=== PATIENT | female | born 1955 | race Caucasian/White ===

== ENCOUNTER 2018-03-17 16:33 | Inpatient (IN) | payer OTHER ==
[~2018-03-17] VITALS: Ht 165.1 cm; Wt 72.5 kg
[2018-03-17] MEDS ORDERED: SODIUM CHLORIDE FLUSH 10ML SYR IVF ONE (17:00)
[2018-03-17] MEDS ORDERED: SODIUM CHLORIDE 0.9% 1,000ML IVBOLUS ONE (17:00)
[2018-03-17] MEDS ORDERED: ASPIRIN 81 MG TABLET CHEW PO ONE (17:00)
[2018-03-17] MEDS ORDERED: ONDANSETRON ODT 4 MG PO ONE (17:00)
[2018-03-17 17:13] LABS: BASOPHILS # (AUTO) 0.05 x10^3/uL (0-0.1); BASOPHILS % (AUTO) 1 % (0-1); EOSINOPHILS # (AUTO) 0.09 x10^3/uL (0-0.4); EOSINOPHILS % (AUTO) 1 % (1-7); LYMPHOCYTES # (AUTO) 1.27 x10^3/uL (1-3.4); LYMPHOCYTES % (AUTO) 19 % (22-44); MD NO; MEAN CORPUSCULAR HEMOGLOBIN 27.8 pg (27.0-34.8); MEAN CORPUSCULAR HGB CONC 33.7 g/dL (32.4-35.8); MEAN CORPUSCULAR VOLUME 82.4 fL (80-100); MEAN PLATELET VOLUME 7.7 fL (7.4-10.4); MONOCYTES # (AUTO) 0.35 x10^3/uL (0.2-0.8); MONOCYTES % (AUTO) 5 % (2-9); NEUTROPHILS # (AUTO) 4.96 x10^3/uL (1.8-6.8); NEUTROPHILS % (AUTO) 74 % (42-75); PLATELET COUNT 358 x10^3/uL (130-400); RED BLOOD COUNT 4.97 x10^6/uL (3.82-5.3); RED CELL DISTRIBUTION WIDTH 13.5 % (9.6-15.2)
[2018-03-17 17:25] LABS: D-DIMER 0.48 ug/mlFEU (0.00-0.52); INTERNATIONAL NORMALIZED RATIO 1.04 (0.93-1.1); PROTHROMBIN TIME 10.7 Seconds (9.6-11.5)
[2018-03-17 17:26] LABS: ALANINE AMINOTRANSFERASE 35 U/L (12-78); ALBUMIN 4.1 g/dL (3.4-5.0); ANION GAP 10 mmol/L (5-15); CALCIUM 8.8 mg/dL (8.5-10.1); CHLORIDE 104 mmol/L (98-107); CREATININE 1.11 mg/dL (0.55-1.02)
[2018-03-17 17:30] LABS: ALKALINE PHOSPHATASE 112 U/L (45-117); BILIRUBIN,TOTAL 0.7 mg/dL (0.2-1.0); TOTAL PROTEIN 7.5 g/dL (6.4-8.2)
[2018-03-17 17:39] LABS: MICROSCOPIC NOT IND
[2018-03-17] MEDS ORDERED: ASPIRIN 81 MG TABLET CHEW ONE (17:48)
[2018-03-17] MEDS ORDERED: ONDANSETRON ODT 4 MG ONE (17:48)
[2018-03-17 17:49] LABS: CULTURE INDICATED? NO
[2018-03-17] MEDS ORDERED: POTASSIUM CHLORIDE 20 MEQ TAB.ER.PRT ONE (17:49)
[2018-03-17 17:55] LABS: FREE T4 (FREE THYROXINE) 1.23 ng/dL (0.76-1.46); THYROID STIMULATING HORMONE 5.04 mIU/L (0.358-3.740)
[2018-03-17] MEDS ORDERED: POTASSIUM CHLORIDE 20 MEQ TAB.ER.PRT PO ONE (18:00)
[2018-03-17 19:27] LABS: AMPHETAMINE SCREEN, URINE Negative (Negative); BARBITURATE SCREEN, URINE Positive (Negative); BENZODIAZEPINE SCREEN, URINE Negative (Negative); CANNABINOID SCREEN, URINE Negative (Negative); COCAINE SCREEN, URINE Negative (Negative); METHADONE SCREEN, URINE Negative (Negative); OPIATE SCREEN, URINE Negative (Negative)
[2018-03-17] MEDS ORDERED: NS + 20MEQ KCL 1,000 ML IV SCH (20:25)
[2018-03-17] MEDS ORDERED: DOCUSATE 100 MG CAPSULE PO PRN (20:30)
[2018-03-17] MEDS ORDERED: morphine SULFATE 10 MG/ML, 1ML IVPush PRN (20:30)
[2018-03-17] MEDS ORDERED: HYDROcodone/APAP 5/325 TABLET PO PRN (20:30)
[2018-03-17] MEDS ORDERED: ONDANSETRON 2MG/ML, 2ML IVPush PRN (20:30)
[2018-03-17] MEDS ORDERED: POLYETHYLENE GLYCOL 17 GM PACKET PO PRN (20:30)
[2018-03-17 21:30] VITALS: BP 106/70
[2018-03-17] MEDS ORDERED: ALBUTEROL SULFATE 2.5 MG/3 ML NPPB PRN (21:30)
[2018-03-17] MEDS: ENOXAPARIN 40 MG/0.4 ML SQ SCH (22:40)
[2018-03-17 22:50] VITALS: BP 106/70
[2018-03-17] MEDS ORDERED: OMEP20TA62 PO (23:58)
[2018-03-18] MEDS ORDERED: FLUT1DIS3 INH (00:05)
[2018-03-18] MEDS ORDERED: ACYC-114 PO (00:08)
[2018-03-18] MEDS ORDERED: QUET25TA PO (00:11)
[2018-03-18] MEDS ORDERED: MONT10TA6 PO (00:13)
[2018-03-18] MEDS ORDERED: PRIM50TA PO (00:16)
[2018-03-18] MEDS ORDERED: ALBU18HF PO (00:20)
[2018-03-18] MEDS ORDERED: FLUO20CA8 PO (00:24)
[2018-03-18] MEDS ORDERED: BUPR150T13 PO (00:27)
[2018-03-18 01:17] VITALS: BP 114/72
[2018-03-18] MEDS: QUETIAPINE 25MG TABLET PO SCH ×2 (02:05→21:13)
[2018-03-18 05:57] LABS: TROPONIN I 0.019 ng/mL (0.000-0.045)
[2018-03-18 07:07] VITALS: BP 109/67
[2018-03-18] MEDS: SENNA/DOCUSATE TABLET PO SCH (08:19)
[2018-03-18] MEDS ORDERED: ASPI-515 PO (08:21)
[2018-03-18 08:54] LABS: ANION GAP 10 mmol/L (5-15); CHLORIDE 115 mmol/L (98-107); CREATININE 0.96 mg/dL (0.55-1.02)
[2018-03-18] MEDS ORDERED: ALBUTEROL SULFATE 2.5 MG/3 ML NPPB PRN (11:30)
[2018-03-18] MEDS: FLUOXETINE HCL 20 MG CAPSULE PO SCH (12:11)
[2018-03-18] MEDS: ACYCLOVIR 400 MG TABLET PO SCH ×3 (12:11→21:11)
[2018-03-18] MEDS: ASPIRIN 81 MG TABLET EC PO SCH (12:11)
[2018-03-18] MEDS: BUPROPION SR 150 MG TABLET PO SCH ×3 (12:11→21:11)
[2018-03-18 13:11] VITALS: BP 118/71
[2018-03-18 13:12] VITALS: BP 123/69
[2018-03-18 13:13] VITALS: BP 121/72
[2018-03-18] MEDS: ACETAMINOPHEN 325 MG TABLET PO PRN (15:45)
[2018-03-18 18:41] VITALS: BP_SYST 115; BP_SYST 121; BP_SYST 126; BP_DIAS 70; BP_DIAS 72; BP_DIAS 79
[2018-03-18] MEDS ORDERED: MONTELUKAST 10 MG TABLET PO SCH (21:00)
[2018-03-18] MEDS ORDERED: PRIMIDONE 50 MG TABLET PO SCH (21:00)
[2018-03-18] MEDS ORDERED: QUETIAPINE 25MG TABLET PO SCH (21:00)
[2018-03-18] MEDS: ENOXAPARIN 40 MG/0.4 ML SQ SCH (21:13)
[2018-03-19 02:05] VITALS: BP 117/73
[2018-03-19] MEDS ORDERED: OMEPRAZOLE 20 MG CAPSULE.DR PO SCH (07:30)
[2018-03-19] MEDS: FLUOXETINE HCL 20 MG CAPSULE PO SCH (07:42)
[2018-03-19] MEDS: ACYCLOVIR 400 MG TABLET PO SCH (07:42)
[2018-03-19] MEDS: ASPIRIN 81 MG TABLET EC PO SCH (07:42)
[2018-03-19] MEDS: BUPROPION SR 150 MG TABLET PO SCH (07:42)
[2018-03-19] MEDS: SENNA/DOCUSATE TABLET PO SCH (07:43)
[2018-03-19] MEDS: ACETAMINOPHEN 325 MG TABLET PO PRN (07:49)
[2018-03-19 08:07] VITALS: BP 130/69
[2018-03-19 08:08] VITALS: BP 127/80
[2018-03-19 08:09] VITALS: BP 127/79
[2018-03-19] MEDS ORDERED: FLUTICASONE/VILANTEROL 100-25MCG/INH INH SCH (09:00)
[2018-03-19] MEDS ORDERED: IBUPROFEN 200 MG TABLET PO PRN (09:30)
[2018-03-19 09:57] LABS: BASOPHILS # (AUTO) 0.03 x10^3/uL (0-0.1); BASOPHILS % (AUTO) 1 % (0-1); EOSINOPHILS # (AUTO) 0.12 x10^3/uL (0-0.4); EOSINOPHILS % (AUTO) 2 % (1-7); LYMPHOCYTES # (AUTO) 1.39 x10^3/uL (1-3.4); LYMPHOCYTES % (AUTO) 22 % (22-44); MD NO; MEAN CORPUSCULAR HGB CONC 33.3 g/dL (32.4-35.8); MEAN CORPUSCULAR VOLUME 84.3 fL (80-100); MEAN PLATELET VOLUME 7.7 fL (7.4-10.4); MONOCYTES # (AUTO) 0.32 x10^3/uL (0.2-0.8); MONOCYTES % (AUTO) 5 % (2-9); NEUTROPHILS # (AUTO) 4.36 x10^3/uL (1.8-6.8); NEUTROPHILS % (AUTO) 70 % (42-75); PLATELET COUNT 325 x10^3/uL (130-400); RED BLOOD COUNT 4.76 x10^6/uL (3.82-5.3); RED CELL DISTRIBUTION WIDTH 13.9 % (9.6-15.2)
[2018-03-19 10:07] LABS: ALANINE AMINOTRANSFERASE 33 U/L (12-78); ALBUMIN 3.8 g/dL (3.4-5.0); ANION GAP 7 mmol/L (5-15); CALCIUM 8.8 mg/dL (8.5-10.1); CHLORIDE 103 mmol/L (98-107); CREATININE 1.03 mg/dL (0.55-1.02)
[2018-03-19 10:09] LABS: ALKALINE PHOSPHATASE 109 U/L (45-117); BILIRUBIN,TOTAL 0.5 mg/dL (0.2-1.0); TOTAL PROTEIN 7.3 g/dL (6.4-8.2)
[2018-03-19 13:13] VITALS: BP 112/70
== END 2018-03-19 14:58 | disposition home or self-care (01) | DRG 73 ==
LOC: ED 18:21 → EDIP 20:01 → 4EST 21:12
PROVIDERS: ADMIT Family Medicine; ATTEND Family Medicine
DX: G90.9 Disorder of the autonomic nervous system, unspecified (principal); J96.01 Acute respiratory failure with hypoxia; T68.XXXA Hypothermia, initial encounter; E87.2 Acidosis; R07.89 Other chest pain; E86.0 Dehydration; F32.9 Major depressive disorder, single episode, unspecified; E87.6 Hypokalemia; J44.9 Chronic obstructive pulmonary disease, unspecified; Z80.9 Family history of malignant neoplasm, unspecified; Z82.49 Family history of ischemic heart disease and other diseases of the circulatory system; Z86.73 Personal history of transient ischemic attack (TIA), and cerebral infarction without residual deficits; Z87.891 Personal history of nicotine dependence; Z79.82 Long term (current) use of aspirin; Z79.899 Other long term (current) drug therapy; R25.1 Tremor, unspecified
CPT/HCPCS: 36415; 70450; 71045; 80048; 80053; 80307; 81003; 83735; 83880; 84439; 84443; 84484; 85025; 85379; 85610; 85730; 93005; 93306; 96360; J1650; J3480; Q0162; J7030